=== PATIENT | female | born 1965 ===

== ENCOUNTER 2016-12-03 12:26 | Emergency (ER) | payer OTHER ==
[2016-12-03 12:35] VITALS: BP 154/99; PULSE 83; RESP 16; TEMP 97; O2SAT 100
--- NOTE | 2016-12-03 13:28 | ED PDOC ---
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 Patient reports pain began after she tripped and fell down five steps on a flight of stairs. She states she hit her head while falling down but did not lose consciousness. Since onset of the injury, she has been experiencing pain to her right shoulder, back, and arm. Patient notes she is advised not to take Ibuprofen by her primary doctor due to issues the conflict with her menstruation cycles. Past Medical History Reviewed: Historical Data, Nursing Documentation, Vital Signs Vital Signs: Last Vital Signs Temp 97.0 F L 12/03/16 12:34 Pulse 83 12/03/16 12:34 Resp 16 12/03/16 12:34 BP 154/99 H 12/03/16 12:34 Pulse Ox 100 12/03/16 12:34 - Medical History PMH: Anemia, Anxiety, Arthritis, Gall Bladder Disease, Hypercholesterolemia, Migraine Denies: HIV, Chronic Kidney Disease - Surgical History Surgical History: Cholecystectomy, (x 4) - Family History Family History: States: No Known Family Hx - Social History Current smoker - smoking cessation education provided: No Alcohol: None Drugs: Denies - Home Medications Home Medications: Ambulatory Orders Medication Instructions Recorded Acetaminophen [Tylenol] 1 - 2 tab PO Q6H PRN 03/04/14 Amitriptyline [Elavil] 25 mg PO DAILY PRN 03/04/14 Diclofenac 2 tab PO BID PRN 03/04/14 oxyCODONE/Acetaminophen [Percocet 1 tab PO Q4 PRN #0 tab 03/06/14 5/325 mg Tab] Acetaminophen with Codeine 1 tab PO Q4 #10 tab 04/11/14 [Tylenol with Codeine No. 3 300 mg-30 mg] Diphenhydramine HCl [Benadryl 50 mg PO Q6 #24 tab 04/11/14 Allergy] Famotidine [Pepcid] 20 mg PO DAILY #10 tab 04/11/14 Prednisone 40 mg PO DAILY #8 tab 04/11/14 Diphenhydramine Hydrochlorid 25 mg PO Q6 PRN #1 packet 02/26/15 [Benadryl] Prednisone 50 mg PO DAILY #5 tab 02/26/15 traMADol [Ultram] 50 mg PO TID PRN #15 tab 03/01/16 Cyclobenzaprine [Cyclobenzaprine 10 mg PO Q8H PRN #12 tab 12/03/16 HCl] - Allergies Allergies/Adverse Reactions: Allergies Allergy/AdvReac Type Severity Reaction Status Date / Time celery Allergy HEADACHE Verified 03/01/16 20:47 garlic Allergy HEADACHE Verified 03/01/16 20:47 ibuprofen Allergy REDNESS Verified 03/01/16 20:47 iodine Allergy REDNESS Verified 03/01/16 20:47 seafood Allergy REDNESS Uncoded 03/01/16 20:47 Review of Systems ROS Statement: Except As Marked, All Systems Reviewed And Found Negative Musculoskeletal: Positive for: Shoulder Pain, Arm Pain, Back Pain Neurological: Negative for: Weakness, Numbness Physical Exam - Reviewed Nursing Documentation Reviewed: Yes Vital Signs Reviewed: Yes - Physical Exam Appears: Positive for: Non-toxic, No Acute Distress Head Exam: Positive for: ATRAUMATIC, NORMOCEPHALIC Skin: Positive for: Normal Color. Negative for: Rash Eye Exam: Positive for: Normal appearance Neck: Positive for: Normal Cardiovascular/Chest: Positive for: Regular Rate, Rhythm. Negative for: Murmur Respiratory: Positive for: Normal Breath Sounds. Negative for: Accessory Muscle Use, Respiratory Distress Back: Positive for: Normal Inspection, Other ((+) ttp to right side of her back. no visible signs of ecchymosis or deformities. (-) bony tenderness ). Negative for: L CVA Tenderness, R CVA Tenderness Extremity: Positive for: Normal ROM (UE - wrist, elbow and shoulder). 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 Negative for: Motor/Sensory Deficits, Aphasia, Facial Droop - ECG O2 Sat by Pulse Oximetry: 100 Medical Decision Making Medical Decision Makin:36 Initial Impression- 51 y/o female with back pain and right arm pain Initial Plan * Tylenol 975 mg PO * Neurologic exam normal, full ROM in UE without pain on palpation, edema, ecchymosis, deformity. X-ray not indicated. Pt given Rx for flexeril only. Documented by Scotty Diehl, acting as a scribe for Ese Michele PA-C All medical record entries made by the Scribe were at my direction and personally dictated by me. I have reviewed the chart and agree that the record accurately reflects my personal performance of the history, physical exam, medical decision making, and the department course for this patient. I have also personally directed, reviewed, and agree with the discharge instructions and disposition. Disposition - Clinical Impression Clinical Impression: Back pain, Fall, Arm pain - Patient ED Disposition Is Patient to be Admitted: No Counseled Patient/Family Regarding: Diagnosis, Need For Followup, Rx Given - Disposition Disposition: Routine/Home Disposition Time: 14:42 Condition: GOOD Prescriptions: Cyclobenzaprine [Cyclobenzaprine HCl] 10 mg PO Q8H PRN #12 tab PRN Reason: Muscle Spasm Instructions: Back Pain (ED)
== END 2016-12-03 14:58 | disposition home or self-care (01) ==
LOC: H.ER 12:26
DX: M54.9 Dorsalgia, unspecified (principal); M79.601 Pain in right arm

== ENCOUNTER 2018-09-05 14:24 | Emergency (ER) | payer OTHER, SELFPAY ==
[2018-09-05 14:45] VITALS: TEMP 98; O2SAT 99
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
[2018-09-05] MEDS ORDERED: Barium Sulfate Susp 2.1% w/v, 2.0% w/w 450 mL Bottle PO ONE ×3 (16:31)
--- NOTE | 2018-09-05 16:31 | RAD ---
Date of service: 09/05/2018 PROCEDURE: Cervical Spine Radiographs. HISTORY: Pain. COMPARISON: None available. TECHNIQUE: 3 views obtained. FINDINGS: BONES: Alignment maintained. No fracture. Dens Intact. DISC SPACES: Normal. SOFT TISSUES: Normal. No prevertebral soft tissue swelling. OTHER FINDINGS: None. IMPRESSION: Normal cervical spine radiographs
[2018-09-05 16:43] LABS: BASO # 0.1 K/uL (0.0-0.2); BASO % 1.2 % (0.0-2.0); EOS # 0.3 K/uL (0.0-0.7); EOS % 5.4 % (0.0-4.0); HEMOGLOBIN 13.7 g/dL (12.0-16.0); LYMPH # 1.8 K/uL (1.0-4.3); MEAN CELL VOLUME 87.2 fl (81.0-99.0); MEAN CORPUSCULAR HEMOGLOBIN 28.9 pg (27.0-31.0); MEAN CORPUSCULAR HGB CONC 33.1 g/dL (33.0-37.0); MEAN PLATELET VOLUME 9.7 fl (7.2-11.7); MONO # 0.3 K/uL (0.0-0.8); MONO % 7.1 % (0.0-10.0); NEUT # 2.4 K/uL (1.8-7.0); NEUT % 49.3 % (50.0-75.0); RBC 4.73 Mil/uL (3.80-5.20); WHITE BLOOD COUNT 4.8 K/uL (4.8-10.8)
[2018-09-05 16:56] LABS: ALB/GLOB RATIO 1.3 (1.0-2.1); ALBUMIN 4.5 g/dL (3.5-5.0); ALT/SGPT 26 U/L (9-52); AST/SGOT 25 U/L (14-36); BLOOD UREA NITROGEN 18 mg/dl (7-17); CALCIUM 9.1 mg/dL (8.4-10.2); GFR NON-AFRICAN AMERICAN > 60
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
[2018-09-06 08:08] VITALS: BP 131/69; PULSE 88; RESP 20
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
== END 2018-09-05 20:25 | disposition home or self-care (01) ==
LOC: H.ER 14:24
DX: M54.30 Sciatica, unspecified side (principal); F07.81 Postconcussional syndrome; R10.9 Unspecified abdominal pain; S09.90XA Unspecified injury of head, initial encounter; W01.0XXA Fall on same level from slipping, tripping and stumbling without subsequent striking against object, initial encounter; Z88.8 Allergy status to other drugs, medicaments and biological substances; Z90.49 Acquired absence of other specified parts of digestive tract; E78.00 Pure hypercholesterolemia, unspecified